=== PATIENT | female | born 1995 | race Caucasian/White ===

== ENCOUNTER 2022-07-24 16:00 | Emergency (ER) | payer OTHER ==
[2022-07-24 18:00] LABS: CARBON DIOXIDE,CO2 29.9 mmol/L (21.0-32.0); POTASSIUM,K 3.8 mmol/L (3.5-5.1)
[2022-07-24] MEDS ORDERED: cefTRIAXone 1 GM Vial IM STA (18:07)
[2022-07-24] MEDS ORDERED: Lidocaine 1% 2 ML ONE (18:11)
[2022-07-24] MEDS ORDERED: Lidocaine HCl/PF 10 MG/ML SDV INJECT ONE (18:12)
[2022-07-24] MEDS ORDERED: Lidocaine 1% PF 2 ML SDV INJECT ONE (18:14)
== END 2022-07-24 19:42 | disposition home or self-care (01) ==
LOC: MW.ED 16:00
DX: N30.01 Acute cystitis with hematuria (principal); L01.00 Impetigo, unspecified; D50.9 Iron deficiency anemia, unspecified; K21.9 Gastro-esophageal reflux disease without esophagitis; E03.9 Hypothyroidism, unspecified; Z79.899 Other long term (current) drug therapy
CPT/HCPCS: 36415; 80053; 81001; 81025; 85025; 87086; 87088; 87186; 96372; 99284; J0696; J3490

== ENCOUNTER 2022-09-27 15:17 | Emergency (ER) | payer MEDICAID | END 2022-09-27 18:03 | disposition home or self-care (01) | LOC: MW.ED 15:17 | DX: N39.0 Urinary tract infection, site not specified (principal); K21.9 Gastro-esophageal reflux disease without esophagitis; E03.9 Hypothyroidism, unspecified; Z79.899 Other long term (current) drug therapy | CPT/HCPCS: 81001; 81025; 87086; 99283; 99284 ==

== ENCOUNTER 2022-11-01 19:40 | Emergency (ER) | payer SELFPAY ==
[2022-11-01] MEDS ORDERED: Sodium Chloride 0.9% 1,000 ML IV ONE (20:03)
[2022-11-01] MEDS ORDERED: Acetaminophen 500 MG Tab PO ONE (20:03)
[2022-11-01] MEDS ORDERED: Ondansetron 4 MG/2 ML SDV IVPUSH ONE (20:03)
[2022-11-01] MEDS ORDERED: Ketorolac 30 MG/ML SDV IVPUSH ONE (20:03)
[2022-11-01] MEDS ORDERED: Sodium Chloride 0.9% 2.5 ML Syringe FLUSH PRN (20:03)
[2022-11-01] MEDS ORDERED: Sodium Chloride 0.9% 10 ML Syringe FLUSH PRN (20:03)
[2022-11-01] MEDS ORDERED: cefTRIAXone 2 GM in Sodium Chloride 0.9% 50 ML IV ONE (20:03)
[2022-11-01] MEDS ORDERED: Phenazopyridine 200 MG Tab PO ONE (20:07)
[2022-11-01 21:08] LABS: CARBON DIOXIDE,CO2 27.4 mmol/L (21.0-32.0); POTASSIUM,K 3.9 mmol/L (3.5-5.1)
[2022-11-01] MEDS ORDERED: Sodium Ferric Gluconate Cmplex 125 MG in Sodium Chloride 0.9% 100 ML IV ONE (22:03)
[2022-11-01] MEDS ORDERED: Cyanocobalamin (Vitamin B12) 1,000 MCG/ML SDV IM ONE (22:03)
== END 2022-11-01 23:25 | disposition home or self-care (01) ==
LOC: MW.ED 19:40
DX: N12 Tubulo-interstitial nephritis, not specified as acute or chronic (principal); D64.9 Anemia, unspecified; E03.9 Hypothyroidism, unspecified; K21.9 Gastro-esophageal reflux disease without esophagitis; Z79.899 Other long term (current) drug therapy
CPT/HCPCS: 36415; 80048; 81001; 81025; 83550; 83605; 85025; 87040; 87086; 96361; 96365; 96367; 96372; 96375; 99283; A9270; J0696; J1885; J2405; J2916; J3420; J3490; J7030; 99284

== ENCOUNTER 2022-11-12 12:03 | Emergency (ER) | payer SELFPAY ==
[2022-11-12] MEDS ORDERED: Ondansetron 4 MG/2 ML SDV IVPUSH ONE ×2 (12:31→18:14)
[2022-11-12] MEDS ORDERED: Ketorolac 30 MG/ML SDV IVPUSH ONE (12:31)
[2022-11-12] MEDS ORDERED: Sodium Chloride 0.9% 1,000 ML IV ONE ×2 (12:31→17:01)
[2022-11-12 12:51] LABS: BASOPHILS PERCENT AUTO 0.6 % (0.0-1.5); EOSINOPHILS ABSOLUTE AUTO 0.3 K/uL (0.0-0.7); EOSINOPHILS PERCENT AUTO 4.4 % (0.0-7.0); HEMOGLOBIN 7.7 g/dL (12.0-16.0); LYMPHOCYTES ABSOLUTE AUTO 1.6 K/uL (0.6-2.4); LYMPHOCYTES PERCENT AUTO 21.6 % (16.0-40.0); MEAN CORPUSCULAR HEMOGLOBIN 21.4 pg (27.0-32.0); MEAN CORPUSCULAR HGB CONC 28.5 g/dL (31.0-37.0); MEAN CORPUSCULAR VOLUME 75.2 fL (80.0-98.0); MONOCYTES ABSOLUTE AUTO 0.3 K/uL (0.0-0.8); MONOCYTES PERCENT AUTO 4.5 % (0.0-15.0); NEUTROPHILS PERCENT AUTO 68.9 % (48.0-80.0); NRBC ABSOLUTE 0 K/uL; PLATELET COUNT,PLT 350 K/uL (150-400); RED BLOOD CELL COUNT 3.59 M/uL (4.30-5.90); WHITE BLOOD CELL COUNT,WBC 7.26 K/uL (4.0-11.0)
[2022-11-12 13:15] LABS: A/G RATIO 0.9 (0.9-1.6); ALBUMIN 3.4 g/dL (3.4-5.0); BILIRUBIN TOTAL 0.5 mg/dL (0.2-1.0); CALCIUM 8.3 mg/dL (8.5-10.1); CARBON DIOXIDE,CO2 28.8 mmol/L (21.0-32.0); POTASSIUM,K 4.2 mmol/L (3.5-5.1)
[2022-11-12 14:02] LABS: BILIRUBIN,URINE NEGATIVE (NEGATIVE); COLOR,URINE YELLOW; GLUCOSE,URINE NEGATIVE (NEGATIVE); KETONES,URINE NEGATIVE (NEGATIVE); LEUKOCYTE ESTERASE,URINE MODERATE (NEGATIVE); NITRITE,URINE NEGATIVE (NEGATIVE); OCCULT BLOOD,URINE LARGE (NEGATIVE); PH,URINE 5.5 (5.0-8.0); PROTEIN,URINE 100 mg/dL (NEGATIVE); UROBILINOGEN,URINE 0.2 EU/dL (<2.0)
[2022-11-12 14:04] LABS: APPEARANCE,URINE HAZY
[2022-11-12 14:10] LABS: RBC,URINE 15-20 (0-2/HPF)
[2022-11-12 14:11] LABS: BACTERIA,URINE 3+ (NEGATIVE); EPITHELIAL CELLS,URINE MODERATE (NONE-FEW); WBC,URINE TO NUMEROUS TO COUNT (0-5/HPF); YEAST,URINE FEW
[2022-11-12] MEDS ORDERED: cefTRIAXone 1 GM in Sodium Chloride 0.9% 50 ML IV ONE (14:16)
[2022-11-12] MEDS ORDERED: Morphine 4 MG/ML Syringe IVPUSH ONE (15:10)
[2022-11-12] MEDS ORDERED: Nicotine 21 MG/24 Hr Patch TRDERM ONE (16:53)
== END 2022-11-12 20:45 ==
LOC: MW.ED 12:03
DX: N13.6 Pyonephrosis (principal); D64.9 Anemia, unspecified; K21.9 Gastro-esophageal reflux disease without esophagitis; E03.9 Hypothyroidism, unspecified; F17.210 Nicotine dependence, cigarettes, uncomplicated; Z79.899 Other long term (current) drug therapy
CPT/HCPCS: 36415; 74176; 80053; 81001; 81025; 85025; 87086; 96361; 96365; 96375; 96376; 99285; J0696; J1885; J2270; J2405; J3490; J7030

== ENCOUNTER 2022-12-02 17:44 | Emergency (ER) | payer SELFPAY ==
[2022-12-02] MEDS ORDERED: Sodium Chloride 0.9% 1,000 ML IV ONE (19:48)
[2022-12-02] MEDS ORDERED: Ketorolac 30 MG/ML SDV IVPUSH ONE (19:48)
[2022-12-02] MEDS ORDERED: Morphine 4 MG/ML Syringe IVPUSH ONE (19:48)
[2022-12-02] MEDS ORDERED: Ondansetron 4 MG/2 ML SDV IVPUSH ONE (19:48)
[2022-12-02 20:28] LABS: HEMATOCRIT 32.5 % (36.0-46.0); HEMOGLOBIN 9.8 g/dL (12.0-16.0); MEAN CORPUSCULAR HEMOGLOBIN 24.5 pg (27.0-32.0); MEAN CORPUSCULAR HGB CONC 30.2 g/dL (31.0-37.0); MEAN CORPUSCULAR VOLUME 81.3 fL (80.0-98.0); PLATELET COUNT,PLT 331 K/uL (150-400); WHITE BLOOD CELL COUNT,WBC 7.71 K/uL (4.0-11.0)
[2022-12-02 20:46] LABS: BILIRUBIN,URINE NEGATIVE (NEGATIVE); COLOR,URINE YELLOW; GLUCOSE,URINE NEGATIVE (NEGATIVE); KETONES,URINE NEGATIVE (NEGATIVE); LEUKOCYTE ESTERASE,URINE LARGE (NEGATIVE); NITRITE,URINE POSITIVE (NEGATIVE); OCCULT BLOOD,URINE MODERATE (NEGATIVE); PROTEIN,URINE 100 mg/dL (NEGATIVE); UROBILINOGEN,URINE 0.2 EU/dL (<2.0)
[2022-12-02 20:47] LABS: APPEARANCE,URINE CLOUDY
[2022-12-02 20:50] LABS: A/G RATIO 0.8 (0.9-1.6); ALBUMIN 3.4 g/dL (3.4-5.0); BILIRUBIN TOTAL 0.4 mg/dL (0.2-1.0); CALCIUM 8.7 mg/dL (8.5-10.1); CARBON DIOXIDE,CO2 27.5 mmol/L (21.0-32.0); POTASSIUM,K 3.7 mmol/L (3.5-5.1); PROTEIN TOTAL,TP 7.5 g/dL (6.4-8.2)
[2022-12-02 20:55] LABS: BACTERIA,URINE 4+ (NEGATIVE); EPITHELIAL CELLS,URINE MANY (NONE-FEW); MUCUS,URINE FEW (NONE-MOD); WBC,URINE TO NUMEROUS TO COUNT (0-5/HPF)
[2022-12-02] MEDS ORDERED: cefTRIAXone 1 GM in Sodium Chloride 0.9% 50 ML IV ONE (20:57)
[2022-12-02 21:14] LABS: LYMPHOCYTES ABSOLUTE MAN 1.7 (0.6-2.4); LYMPHOCYTES PERCENT MAN 22 % (16.0-40.0); SEG NEUTROPHILS ABSOLUTE MAN 5.4 (1.4-5.7); SEG NEUTROPHILS PERCENT MAN 70 % (48.0-80.0)
[2022-12-02 21:15] LABS: BASOPHILS ABSOLUTE MAN 0.1 (0.0-0.1); BASOPHILS PERCENT MAN 1 % (0.0-1.5); EOSINOPHILS ABSOLUTE MAN 0.2 (0.0-0.7); EOSINOPHILS PERCENT MAN 2 % (0.0-7.0); MONOCYTES ABSOLUTE MAN 0.4 (0.0-0.8); MONOCYTES PERCENT MAN 5 % (0.0-15.0)
== END 2022-12-02 22:45 | disposition home or self-care (01) ==
LOC: MW.ED 17:44
DX: N12 Tubulo-interstitial nephritis, not specified as acute or chronic (principal); K21.9 Gastro-esophageal reflux disease without esophagitis; E03.9 Hypothyroidism, unspecified; F17.210 Nicotine dependence, cigarettes, uncomplicated; Z79.899 Other long term (current) drug therapy
CPT/HCPCS: 36415; 74176; 80053; 81001; 84703; 85025; 96361; 96365; 96375; 99284; J0696; J1885; J2270; J2405; J3490; J7030

== ENCOUNTER 2022-12-14 07:05 | Emergency (ER) | payer MEDICAID ==
[2022-12-14] MEDS ORDERED: Sodium Chloride 0.9% 10 ML Syringe FLUSH PRN (07:21)
[2022-12-14] MEDS ORDERED: HYDROmorphone 1 MG/ML Syringe IVPUSH ONE ×2 (07:21→10:47)
[2022-12-14] MEDS ORDERED: Ondansetron 4 MG/2 ML SDV IVPUSH ONE (07:21)
[2022-12-14] MEDS ORDERED: Sodium Chloride 0.9% 2.5 ML Syringe FLUSH PRN (07:21)
[2022-12-14] MEDS ORDERED: Ketorolac 30 MG/ML SDV IVPUSH ONE ×2 (07:21→10:47)
[2022-12-14] MEDS ORDERED: Sodium Chloride 0.9% 1,000 ML IV ONE (07:21)
[2022-12-14] MEDS ORDERED: Phenazopyridine 200 MG Tab PO ONE (07:22)
[2022-12-14 07:34] LABS: BASOPHILS PERCENT AUTO 0.4 % (0.0-1.5); EOSINOPHILS ABSOLUTE AUTO 0.3 K/uL (0.0-0.7); EOSINOPHILS PERCENT AUTO 3.3 % (0.0-7.0); HEMATOCRIT 30.5 % (36.0-46.0); HEMOGLOBIN 9.3 g/dL (12.0-16.0); LYMPHOCYTES ABSOLUTE AUTO 1.5 K/uL (0.6-2.4); LYMPHOCYTES PERCENT AUTO 18.7 % (16.0-40.0); MEAN CORPUSCULAR HEMOGLOBIN 24.7 pg (27.0-32.0); MEAN CORPUSCULAR HGB CONC 30.5 g/dL (31.0-37.0); MEAN CORPUSCULAR VOLUME 80.9 fL (80.0-98.0); MONOCYTES ABSOLUTE AUTO 0.7 K/uL (0.0-0.8); MONOCYTES PERCENT AUTO 8.2 % (0.0-15.0); NEUTROPHILS ABSOLUTE AUTO 5.5 K/uL (1.4-5.7); NEUTROPHILS PERCENT AUTO 69.4 % (48.0-80.0); PLATELET COUNT,PLT 391 K/uL (150-400); RED BLOOD CELL COUNT 3.77 M/uL (4.30-5.90); WHITE BLOOD CELL COUNT,WBC 7.95 K/uL (4.0-11.0)
[2022-12-14 08:01] LABS: ALBUMIN 3.3 g/dL (3.4-5.0); BILIRUBIN TOTAL 0.2 mg/dL (0.2-1.0); CALCIUM 8.9 mg/dL (8.5-10.1); CARBON DIOXIDE,CO2 22.3 mmol/L (21.0-32.0); CREATININE 1.2 mg/dL (0.6-1.0); EST CRCL DRUG DOSING (CG) 71.04 mL/min; POTASSIUM,K 3.9 mmol/L (3.5-5.1); PROTEIN TOTAL,TP 7.2 g/dL (6.4-8.2)
[2022-12-14 08:08] LABS: A/G RATIO 0.9 (0.9-1.6)
[2022-12-14 09:17] LABS: APPEARANCE,URINE CLOUDY; COLOR,URINE ORANGE; GLUCOSE,URINE 100 mg/dL (NEGATIVE); KETONES,URINE TRACE mg/dL (NEGATIVE); LEUKOCYTE ESTERASE,URINE LARGE (NEGATIVE); NITRITE,URINE POSITIVE (NEGATIVE); OCCULT BLOOD,URINE LARGE (NEGATIVE); PROTEIN,URINE >=300 mg/dL (NEGATIVE)
[2022-12-14 09:27] LABS: BILIRUBIN,URINE SMALL (NEGATIVE)
[2022-12-14 09:35] LABS: EPITHELIAL CELLS,URINE FEW (NONE-FEW); RBC,URINE 30-40 (0-2/HPF); WBC,URINE 50-75 (0-5/HPF)
[2022-12-14 09:36] LABS: BACTERIA,URINE MANY (NEGATIVE)
[2022-12-14] MEDS ORDERED: cefTRIAXone 2 GM in Sodium Chloride 0.9% 50 ML IV ONE (10:43)
== END 2022-12-14 11:25 | disposition home or self-care (01) ==
LOC: MW.ED 07:05
DX: N13.2 Hydronephrosis with renal and ureteral calculous obstruction (principal); E03.9 Hypothyroidism, unspecified; K21.9 Gastro-esophageal reflux disease without esophagitis; Z79.899 Other long term (current) drug therapy; Z96.0 Presence of urogenital implants
CPT/HCPCS: 36415; 74176; 80053; 81001; 84703; 85025; 87086; 96361; 96365; 96375; 96376; 99284; A9270; J0696; J1170; J1885; J2405; J3490; J7030

== ENCOUNTER 2022-12-24 17:01 | Emergency (ER) | payer MEDICAID ==
[2022-12-24 17:59] LABS: APPEARANCE,URINE CLOUDY; BILIRUBIN,URINE NEGATIVE (NEGATIVE); COLOR,URINE YELLOW; GLUCOSE,URINE NEGATIVE (NEGATIVE); KETONES,URINE NEGATIVE (NEGATIVE); LEUKOCYTE ESTERASE,URINE LARGE (NEGATIVE); NITRITE,URINE NEGATIVE (NEGATIVE); OCCULT BLOOD,URINE SMALL (NEGATIVE); PROTEIN,URINE 30 mg/dL (NEGATIVE)
[2022-12-24 18:10] LABS: BACTERIA,URINE 3+ (NEGATIVE); EPITHELIAL CELLS,URINE MANY (NONE-FEW); WBC,URINE TO NUMEROUS TO COUNT (0-5/HPF)
[2022-12-24] MEDS ORDERED: Sodium Chloride 0.9% 2.5 ML Syringe FLUSH PRN (18:23)
[2022-12-24] MEDS ORDERED: Sodium Chloride 0.9% 10 ML Syringe FLUSH PRN (18:23)
[2022-12-24 18:51] LABS: BASOPHILS PERCENT AUTO 0.1 % (0.0-1.5); EOSINOPHILS ABSOLUTE AUTO 0.1 K/uL (0.0-0.7); HEMOGLOBIN 9.7 g/dL (12.0-16.0); LYMPHOCYTES ABSOLUTE AUTO 1.1 K/uL (0.6-2.4); LYMPHOCYTES PERCENT AUTO 8.1 % (16.0-40.0); MEAN CORPUSCULAR HEMOGLOBIN 24.5 pg (27.0-32.0); MEAN CORPUSCULAR HGB CONC 31.3 g/dL (31.0-37.0); MEAN CORPUSCULAR VOLUME 78.3 fL (80.0-98.0); MONOCYTES ABSOLUTE AUTO 1.2 K/uL (0.0-0.8); MONOCYTES PERCENT AUTO 8.9 % (0.0-15.0); NEUTROPHILS ABSOLUTE AUTO 11.2 K/uL (1.4-5.7); NEUTROPHILS PERCENT AUTO 81.9 % (48.0-80.0); NRBC ABSOLUTE 0 K/uL; PLATELET COUNT,PLT 384 K/uL (150-400); RED BLOOD CELL COUNT 3.96 M/uL (4.30-5.90); WHITE BLOOD CELL COUNT,WBC 13.66 K/uL (4.0-11.0)
[2022-12-24 19:10] LABS: A/G RATIO 0.6 (0.9-1.6); BILIRUBIN TOTAL 0.6 mg/dL (0.2-1.0); CALCIUM 9.6 mg/dL (8.5-10.1); CARBON DIOXIDE,CO2 27.7 mmol/L (21.0-32.0); CREATININE 1.3 mg/dL (0.6-1.0); EST CRCL DRUG DOSING (CG) 65.57 mL/min; POTASSIUM,K 3.8 mmol/L (3.5-5.1); PROTEIN TOTAL,TP 8.2 g/dL (6.4-8.2)
[2022-12-24] MEDS ORDERED: Ketorolac 30 MG/ML SDV IVPUSH ONE (19:19)
[2022-12-24] MEDS ORDERED: Lactated Ringers 1,000 ML IV ONE (19:19)
[2022-12-24] MEDS ORDERED: Ondansetron 4 MG/2 ML SDV IVPUSH ONE (19:19)
[2022-12-24] MEDS ORDERED: Morphine 4 MG/ML Syringe IVPUSH ONE (19:19)
[2022-12-24] MEDS ORDERED: cefTRIAXone 1 GM in Sodium Chloride 0.9% 50 ML IV ONE ×2 (19:21→21:29)
[2022-12-24] MEDS ORDERED: Iopamidol 755 MG/ML 500 ML Multipack Bottle IVPUSH ONE (19:25)
[2022-12-24] MEDS ORDERED: Ketorolac 30 MG/ML SDV ONE (19:42)
[2022-12-24] MEDS ORDERED: Sodium Chloride 0.9% 1,000 ML IV ONE (20:49)
[2022-12-24] MEDS ORDERED: HYDROmorphone 1 MG/ML Syringe IVPUSH ONE (20:49)
== END 2022-12-24 22:51 ==
LOC: MW.ED 17:01
DX: N13.2 Hydronephrosis with renal and ureteral calculous obstruction (principal); K21.9 Gastro-esophageal reflux disease without esophagitis; E03.9 Hypothyroidism, unspecified; Z72.0 Tobacco use; Z79.899 Other long term (current) drug therapy
CPT/HCPCS: 36415; 74177; 76830; 80053; 81001; 81025; 83690; 84703; 85025; 96361; 96365; 96366; 96375; 99285; J0696; J1170; J1885; J2270; J2405; J3490; J7030; J7120; Q9967

== ENCOUNTER 2023-02-17 14:40 | Emergency (ER) | payer MEDICAID ==
[2023-02-17] MEDS ORDERED: Ondansetron 4 MG Tab.DIS PO ONE (15:03)
[2023-02-17 15:42] LABS: CORONAVIRUS COVID-19 NAA NEGATIVE (NEGATIVE); INFLUENZA A NAA NEGATIVE (NEGATIVE); INFLUENZA B NAA NEGATIVE (NEGATIVE); RESPIRATORY SYNCYTIAL VIR NAA NEGATIVE (NEGATIVE)
[2023-02-17] MEDS ORDERED: Dexamethasone 10 MG/ML SDV PO ONE (15:55)
[2023-02-17] MEDS ORDERED: Ibuprofen Susp 100 MG/5 ML 10 ML UD Cup PO ONE (15:55)
[2023-02-17] MEDS ORDERED: Dexamethasone 4 MG Tab PO ONE (16:00)
== END 2023-02-17 17:23 | disposition home or self-care (01) ==
LOC: MW.ED 14:40
DX: J02.9 Acute pharyngitis, unspecified (principal); K21.9 Gastro-esophageal reflux disease without esophagitis; E03.9 Hypothyroidism, unspecified; Z79.899 Other long term (current) drug therapy; Z20.822 Contact with and (suspected) exposure to COVID-19
CPT/HCPCS: 0241U; 87651; 99284; A9270; J8540

== ENCOUNTER 2023-02-18 17:19 | Emergency (ER) | payer MEDICAID ==
[2023-02-18] MEDS ORDERED: Acetaminophen 325 MG Tab PO ONE (17:31)
[2023-02-18] MEDS ORDERED: Ibuprofen 400 MG Tab PO ONE (17:31)
[2023-02-18] MEDS ORDERED: Lidocaine/Epineph/Tetracaine 3 ML Syringe TOP ONE (17:31)
[2023-02-18] MEDS ORDERED: Lidocaine 1% PF 2 ML SDV INJECT ONE (18:16)
[2023-02-18] MEDS ORDERED: Lidocaine 1% 5 ML VIAL ONE (18:17)
== END 2023-02-18 18:43 | disposition home or self-care (01) ==
LOC: MW.ED 17:19
DX: S31.41XA Laceration without foreign body of vagina and vulva, initial encounter (principal); K21.9 Gastro-esophageal reflux disease without esophagitis; E03.9 Hypothyroidism, unspecified; F17.210 Nicotine dependence, cigarettes, uncomplicated; X58.XXXA Exposure to other specified factors, initial encounter
CPT/HCPCS: 12001; 99282; A9270; 99283

== ENCOUNTER 2023-03-07 13:46 | Emergency (ER) | payer OTHER | END 2023-03-07 14:18 | disposition left against medical advice (07) | LOC: MW.ED 13:46 | DX: S31.41XD Laceration without foreign body of vagina and vulva, subsequent encounter (principal); Z48.02 Encounter for removal of sutures | CPT/HCPCS: 99281 ==

== ENCOUNTER 2023-03-08 10:41 | Emergency (ER) | payer MEDICAID | END 2023-03-08 11:16 | disposition left against medical advice (07) | LOC: MW.ED 10:41 | DX: Z53.21 Procedure and treatment not carried out due to patient leaving prior to being seen by health care provider (principal) ==

== ENCOUNTER 2023-03-29 10:21 | Emergency (ER) | payer MEDICAID ==
[2023-03-29] MEDS ORDERED: Amoxicillin 500 MG Cap PO ONE (10:43)
[2023-03-29] MEDS ORDERED: traMADol 50 MG Tab PO ONE (10:44)
== END 2023-03-29 10:57 | disposition home or self-care (01) ==
LOC: MW.ED 10:21
DX: K04.7 Periapical abscess without sinus (principal); K21.9 Gastro-esophageal reflux disease without esophagitis; E03.9 Hypothyroidism, unspecified; Z79.899 Other long term (current) drug therapy
CPT/HCPCS: 99282; A9270; 99283

== ENCOUNTER 2023-05-31 10:53 | Emergency (ER) | payer MEDICAID ==
[2023-05-31 11:42] LABS: APPEARANCE,URINE CLOUDY; BILIRUBIN,URINE NEGATIVE (NEGATIVE); COLOR,URINE YELLOW; GLUCOSE,URINE NEGATIVE (NEGATIVE); KETONES,URINE NEGATIVE (NEGATIVE); LEUKOCYTE ESTERASE,URINE MODERATE (NEGATIVE); NITRITE,URINE POSITIVE (NEGATIVE); OCCULT BLOOD,URINE NEGATIVE (NEGATIVE); PROTEIN,URINE NEGATIVE (NEGATIVE); UROBILINOGEN,URINE 0.2 EU/dL (<2.0)
[2023-05-31 12:01] LABS: BACTERIA,URINE 4+ (NEGATIVE); EPITHELIAL CELLS,URINE MANY (NONE-FEW); MUCUS,URINE LIGHT (NONE-MOD); RBC,URINE 0-3 (0-2/HPF); WBC,URINE 30-40 (0-5/HPF)
== END 2023-05-31 12:03 | disposition home or self-care (01) ==
LOC: MW.ED 10:53
DX: N30.90 Cystitis, unspecified without hematuria (principal); K21.9 Gastro-esophageal reflux disease without esophagitis; E03.9 Hypothyroidism, unspecified; Z79.899 Other long term (current) drug therapy
CPT/HCPCS: 81001; 81025; 87086; 87088; 87186; 99283

== ENCOUNTER 2023-07-09 14:25 | Emergency (ER) | payer OTHER ==
[2023-07-09] MEDS ORDERED: Acyclovir 200 MG Cap PO ONE (15:19)
[2023-07-09] MEDS ORDERED: Acetaminophen/HYDROcodone 325-5 MG Tab PO ONE (15:19)
[2023-07-09 15:53] LABS: APPEARANCE,URINE CLOUDY; BILIRUBIN,URINE NEGATIVE (NEGATIVE); COLOR,URINE YELLOW; GLUCOSE,URINE NEGATIVE (NEGATIVE); KETONES,URINE NEGATIVE (NEGATIVE); LEUKOCYTE ESTERASE,URINE MODERATE (NEGATIVE); NITRITE,URINE NEGATIVE (NEGATIVE); OCCULT BLOOD,URINE NEGATIVE (NEGATIVE); PH,URINE 6.5 (5.0-8.0); PROTEIN,URINE NEGATIVE (NEGATIVE); UROBILINOGEN,URINE 0.2 EU/dL (<2.0)
[2023-07-09 15:59] LABS: BACTERIA,URINE 4+ (NEGATIVE); MUCUS,URINE LIGHT (NONE-MOD); RBC,URINE 0-2 (0-2/HPF); SQUAMOUS EPITHELIAL CELLS,UR MODERATE; WBC,URINE 25-30 (0-5/HPF)
== END 2023-07-09 16:17 | disposition home or self-care (01) ==
LOC: MW.ED 14:25
DX: N89.8 Other specified noninflammatory disorders of vagina (principal); N30.01 Acute cystitis with hematuria; N39.0 Urinary tract infection, site not specified
CPT/HCPCS: 81001; 81025; 87086; 87529; 99283; A9270

== ENCOUNTER 2023-10-12 10:03 | Emergency (ER) | payer OTHER ==
[2023-10-12 10:22] LABS: APPEARANCE,URINE CLOUDY; BILIRUBIN,URINE NEGATIVE (NEGATIVE); COLOR,URINE YELLOW; GLUCOSE,URINE NEGATIVE (NEGATIVE); KETONES,URINE NEGATIVE (NEGATIVE); LEUKOCYTE ESTERASE,URINE MODERATE (NEGATIVE); NITRITE,URINE POSITIVE (NEGATIVE); OCCULT BLOOD,URINE TRACE-INTACT (NEGATIVE); PROTEIN,URINE TRACE mg/dL (NEGATIVE); UROBILINOGEN,URINE 0.2 EU/dL (<2.0)
[2023-10-12 10:36] LABS: BACTERIA,URINE 4+ (NEGATIVE); EPITHELIAL CELLS,URINE MODERATE (NONE-FEW); RBC,URINE 15-25 (0-2/HPF); WBC,URINE 60-75 (0-5/HPF)
== END 2023-10-12 11:09 | disposition home or self-care (01) ==
LOC: MW.ED 10:03
DX: O23.11 Infections of bladder in pregnancy, first trimester (principal); N30.01 Acute cystitis with hematuria; O99.330 Smoking (tobacco) complicating pregnancy, unspecified trimester; F17.210 Nicotine dependence, cigarettes, uncomplicated; K21.9 Gastro-esophageal reflux disease without esophagitis; E03.9 Hypothyroidism, unspecified; Z88.8 Allergy status to other drugs, medicaments and biological substances; Z79.899 Other long term (current) drug therapy; Z75.8 Other problems related to medical facilities and other health care; Z32.01 Encounter for pregnancy test, result positive; Z3A.00 Weeks of gestation of pregnancy not specified
CPT/HCPCS: 81001; 81025; 99283

== ENCOUNTER 2023-10-18 08:32 | Emergency (ER) | payer OTHER ==
[2023-10-18] MEDS: Sodium Chloride 0.9% 10 ML Syringe FLUSH PRN (08:54)
[2023-10-18] MEDS: Sodium Chloride 0.9% 2.5 ML Syringe FLUSH PRN (08:54)
[2023-10-18 08:58] LABS: BASOPHILS ABSOLUTE AUTO 0.03 K/uL (0.00-0.20); BASOPHILS PERCENT AUTO 0.3 % (0.0-1.0); EOSINOPHILS ABSOLUTE AUTO 0.06 K/uL (0.00-0.45); EOSINOPHILS PERCENT AUTO 0.6 % (0.0-6.0); HEMOGLOBIN 11.3 g/dL (12.0-16.0); IMMATURE GRAN ABSOLUTE AUTO 0.03 K/uL (0.00-0.05); IMMATURE GRAN PERCENT AUTO 0.3 % (0.0-0.4); LYMPHOCYTES ABSOLUTE AUTO 1.09 K/uL (1.00-4.80); LYMPHOCYTES PERCENT AUTO 10.9 % (24.0-44.0); MEAN CORPUSCULAR HEMOGLOBIN 26.5 pg (28.0-32.0); MEAN CORPUSCULAR HGB CONC 32.3 g/dL (32.0-36.0); MEAN PLATELET VOLUME 10.1 fL (9.4-12.3); NEUTROPHILS ABSOLUTE AUTO 8.27 K/uL (1.80-7.70); NEUTROPHILS PERCENT AUTO 82.9 % (41.0-71.0); PLATELET COUNT,PLT 328 K/uL (150-400); RED BLOOD CELL COUNT 4.27 M/uL (4.10-5.30); WHITE BLOOD CELL COUNT,WBC 9.98 K/uL (3.9-11.3)
[2023-10-18] MEDS ORDERED: Doxylamine Succinate 25 MG Tab PO ONE (09:06)
[2023-10-18] MEDS: Sodium Chloride 0.9% 1,000 ML IV STA (09:16)
[2023-10-18] MEDS: Doxylamine Succinate 25 MG Tab PO ONE (09:34)
[2023-10-18] MEDS: Vitamin B6-pyridOXINE 50 MG Tab PO ONE (09:35)
[2023-10-18 09:50] LABS: A/G RATIO 0.9 (0.9-1.6); ALBUMIN 3.6 g/dL (3.4-5.0); BILIRUBIN TOTAL 0.7 mg/dL (0.2-1.0); CALCIUM 9.7 mg/dL (8.5-10.1); CARBON DIOXIDE,CO2 24.7 mmol/L (21.0-32.0); CREATININE 0.9 mg/dL (0.6-1.0); EST CRCL DRUG DOSING (CG) 94.72 mL/min; POTASSIUM,K 4.3 mmol/L (3.5-5.1); PROTEIN TOTAL,TP 7.7 g/dL (6.4-8.2)
[2023-10-18 10:24] LABS: APPEARANCE,URINE SLT CLOUDY; BILIRUBIN,URINE NEGATIVE (NEGATIVE); COLOR,URINE YELLOW; GLUCOSE,URINE NEGATIVE (NEGATIVE); KETONES,URINE NEGATIVE (NEGATIVE); LEUKOCYTE ESTERASE,URINE SMALL (NEGATIVE); NITRITE,URINE NEGATIVE (NEGATIVE); OCCULT BLOOD,URINE SMALL (NEGATIVE); PH,URINE 8.5 (5.0-8.0); PROTEIN,URINE 30 mg/dL (NEGATIVE)
[2023-10-18 10:33] LABS: EPITHELIAL CELLS,URINE MANY (NONE-FEW)
[2023-10-18 10:34] LABS: BACTERIA,URINE 2+ (NEGATIVE)
[2023-10-18] MEDS: Ondansetron 4 MG/2 ML SDV IVPUSH ONE (10:36)
== END 2023-10-18 11:41 | disposition home or self-care (01) ==
LOC: MW.ED 08:32
DX: O99.891 Other specified diseases and conditions complicating pregnancy (principal); R10.30 Lower abdominal pain, unspecified; E03.9 Hypothyroidism, unspecified; Z88.8 Allergy status to other drugs, medicaments and biological substances; Z79.899 Other long term (current) drug therapy; Z75.8 Other problems related to medical facilities and other health care; Z3A.09 9 weeks gestation of pregnancy
CPT/HCPCS: 36415; 76801; 80053; 81001; 81025; 83690; 84702; 85025; 86900; 86901; 96361; 96374; 99284; A9270; J2405; J3490; J7030

== ENCOUNTER 2024-01-31 14:39 | Emergency (ER) | payer MEDICAID ==
[2024-01-31 15:51] LABS: APPEARANCE,URINE SLT CLOUDY; BILIRUBIN,URINE NEGATIVE (NEGATIVE); COLOR,URINE YELLOW; GLUCOSE,URINE NEGATIVE (NEGATIVE); KETONES,URINE NEGATIVE (NEGATIVE); LEUKOCYTE ESTERASE,URINE MODERATE (NEGATIVE); NITRITE,URINE NEGATIVE (NEGATIVE); OCCULT BLOOD,URINE NEGATIVE (NEGATIVE); PROTEIN,URINE NEGATIVE (NEGATIVE); UROBILINOGEN,URINE 0.2 EU/dL (<2.0)
[2024-01-31 16:09] LABS: BACTERIA,URINE MANY (NEGATIVE); EPITHELIAL CELLS,URINE MANY (NONE-FEW); WBC,URINE 25-30 (0-5/HPF)
== END 2024-01-31 17:00 | disposition home or self-care (01) ==
LOC: MW.ED 14:39
DX: N30.01 Acute cystitis with hematuria (principal); E03.9 Hypothyroidism, unspecified; Z79.899 Other long term (current) drug therapy; Z75.8 Other problems related to medical facilities and other health care
CPT/HCPCS: 81001; 81025; 87086; 99283